=== PATIENT | male | born 1985 | race Caucasian/White ===

== ENCOUNTER 2018-05-11 18:48 | Emergency (ER) | payer SELFPAY ==
[~2018-05-11] VITALS: Ht 170.2 cm; Wt 94.3 kg
[2018-05-11 18:56] VITALS: BP 129/75; Ht 170.2 cm; Wt 94.3 kg
== END 2018-05-11 19:55 | disposition left against medical advice (07) ==
LOC: ED 18:48
DX: Z53.21 Procedure and treatment not carried out due to patient leaving prior to being seen by health care provider (principal)